=== PATIENT | male | born 1945 | race Caucasian/White ===

== ENCOUNTER 2023-01-07 15:11 | Emergency (ER) | payer OTHER ==
[~2023-01-07] VITALS: Ht 185.4 cm; Wt 88.0 kg
[2023-01-07 16:09] VITALS: BP 115/57
[2023-01-07] MEDS ORDERED: MORPHINE SULFATE 4 MG/ML SYR IM ONE (17:00)
[2023-01-07] MEDS ORDERED: LID5T TP (18:44)
[2023-01-07] MEDS ORDERED: MORPHINE SULFATE 4 MG/ML SYR ONE (18:58)
[2023-01-07] MEDS ORDERED: LIDOCAINE 5% 1 EA PATCH TP ONE (19:05)
--- NOTE | 2023-01-07 19:33 | NUR ---
PT TO BED #11
--- NOTE | 2023-01-07 19:45 | NUR ---
X-Ray at bedside.
--- NOTE | 2023-01-07 20:00 | NUR ---
Patient received on bed sitting and awake. Alert and oriented x4. No acute distress. Complained of right hip pain with the scale of 7/10. Respirations even and unlabored. Patient stated he expectorate clear mucus with dark red blood. ER MD aware.
[2023-01-07 20:22] LABS: BASOPHILS # (AUTO) 0.1 K/uL (0.00-0.22); BASOPHILS % (AUTO) 1.4 % (0.0-2.0); EOSINOPHILS # (AUTO) 0.5 K/uL (0-0.4); EOSINOPHILS % (AUTO) 7.6 % (0.0-4.0); HEMOGLOBIN 12.8 g/dL (12.0-18.0); LYMPHOCYTES # (AUTO) 1.3 K/uL (2.0-11.5); LYMPHOCYTES % (AUTO) 19.3 % (20.5-51.1); MEAN CORPUSCULAR HEMOGLOBIN 33 pg (27-31); MEAN CORPUSCULAR HGB CONC 34 g/dL (33-37); MEAN CORPUSCULAR VOLUME 97.6 fL (80-94); MONOCYTES # (AUTO) 0.7 K/uL (0.8-1.0); MONOCYTES % (AUTO) 10.1 % (1.7-9.3); NEUTROPHILS % (AUTO) 61.6 % (42.2-75.2); PLATELET COUNT (AUTO) 190 K/uL (140-450); RED BLOOD CELL COUNT(AUTO) 3.89 MIL/uL (4.20-6.10); RED CELL DISTRIBUTION WIDTH 14.1 % (11.6-13.7); WHITE BLOOD COUNT (AUTO) 6.5 K/uL (4.8-10.8)
[2023-01-07 20:49] LABS: ALBUMIN 4.2 g/dL (3.4-5.0); ANION GAP 11.7 (8-16); CARBON DIOXIDE 31.9 mmol/L (21-32); CHLORIDE 101 mmol/L (98-107); GLUCOSE 112 mg/dL (74-106); POTASSIUM 4.6 mmol/L (3.5-5.1); SODIUM SERUM 140 mmol/L (136-145); TOTAL BILIRUBIN 0.5 mg/dL (0.0-1.0); UREA NITROGEN, BLOOD 17 mg/dL (7-18)
[2023-01-07 20:58] LABS: ASPARTATE AMINOTRANSFERASE 41 U/L (15-37)
--- NOTE | 2023-01-07 21:37 | NUR ---
PT TAKEN TO CT
--- NOTE | 2023-01-07 21:47 | NUR ---
PT RETURN FROM CT
[2023-01-07 23:40] VITALS: BP 136/71
--- NOTE | 2023-01-07 23:40 | NUR ---
Patient discharged with v/s stable. Written and verbal after care instructions given and explained. Patient alert, oriented and verbalized understanding of instructions. Ambulatory with steady gait. All questions addressed prior to discharge. ID band removed. Patient advised to follow up with PMD. Rx of Lidocaine patch given. Patient educated on indication of medication including possible reaction and side effects. Opportunity to ask questions provided and answered.
== END 2023-01-07 23:40 | disposition home or self-care (01) ==
LOC: MED 15:11
DX: M25.551 Pain in right hip (principal); R04.2 Hemoptysis; Z85.048 Personal history of other malignant neoplasm of rectum, rectosigmoid junction, and anus; Z85.05 Personal history of malignant neoplasm of liver; Z85.118 Personal history of other malignant neoplasm of bronchus and lung; Z88.2 Allergy status to sulfonamides; Z79.1 Long term (current) use of non-steroidal anti-inflammatories (NSAID); Z88.8 Allergy status to other drugs, medicaments and biological substances; Z79.899 Other long term (current) drug therapy; Z98.890 Other specified postprocedural states
CPT/HCPCS: 36415; 71045; 71275; 72170; 73502; 80053; 84484; 85025; 85379; 96372; 99285; J2270; Q0092; Q9967